=== PATIENT | female | born 1975 | race Caucasian/White ===

== ENCOUNTER → 2023-09-05 | Outpatient (CLI) | payer BC ==
[2023-09-05 14:34] VITALS: BP 144/95; PULSE 65; RESP 16
--- NOTE | 2023-09-05 14:35 | P.PAINPG ---
PQRS Measure Charge Sheet Comment: HISTORY OF PRESENT ILLNESS: A 48 yr old female as a referral from Andrea Cooperpajarred [facility] presents today w severe and chronic LBP secondary to, spondylosis and facet arthropathy without myelopathy for evaluation. Pt states pain level is provoked at 7 /10 in intensity, constant, localized in the lower lumbar spine, predominantly axial, sore in character w occasional shooting pain towards the hips and LEs. Pain is provoked by bending. Pain is alleviated by PT x 6 wks in 2021, massage therapy monthly w last visit in Apr 2023, alternating heat & ice, medications (Ibu), THC Gummies, Lidoderm topical, repositioning and rest. Oswestry axial pain score at 22. PMH: OA PSH: TFESIs L4-5 x2 (2022), L L4-5 Hemilaminectomy, , Tubal Ligation, Hysterectomy, Cholecystectomy, L Bunionectomy SH: No tobacco use, Occasional ETOH use, Cannabis use FH: CAD, CVA All: See list Meds: See list REVIEW OF ORGAN SYSTEMS: CONSTITUTIONAL: No fevers or chills. No recent weight loss. NEUROLOGICAL: + numbness and tingling along the distal extremities. No seizure disorders or headaches. MUSCULOSKELETAL: + pain PSYCHIATRIC: Denies current depression or suicidal thoughts. Physical Examinations : Constitutional : Cooperative , not in acute distress . Neurologic : Cranial nerve II to XII intact. No focal neurological deficits. Psychiatric : alert & oriented x 3. Matching mood & appropriate affect. Judgment & insight intact. Musculoskeletal : Cervical Spine Motor strength in the deltoid and biceps: Normal right side. Normal Left side Motor strength biceps and the wrist extensors: Normal right side . Normal left side Motor strength in the triceps muscle: Normal right side. Normal left side Deep tendon reflexes: Normal at the biceps. Normal at Brachioradialis. Normal at triceps Vertebral body tenderness to deep palpation over Cervical facet loading test: positive bilaterally Spurling test: positive bilaterally Neck distraction test: positive bilaterally Ehsan sign: positive bilaterally Lumbar spine Motor strength lower extremities ,thigh and legs 5/5 Right side , 5/5 Left side Deep tendon reflexes : Normal Knee Jerk. Normal Ankle Jerk Vertebral body tenderness over L2 Givens Test positive BL L2-L3 Lumbar facet Loading Test: positive Right / positive Left Range of motion of the lumbar spine Flexion 30 degrees, extension 10 degrees Straight Leg Raise test: Left/ Right positive at degree Lisa test: positive right / positive left. Severe tenderness over the Sacroiliac joint on the Right / Left sides Gaenslen test: positive bilaterally Seated flexion test: positive bilaterally. Sacral spine : Severe tenderness over the Sacroiliac joint: right side / left side Range of motion: Flexion of the lumbar spine <60 degrees Range of motion: Extension of the lumbar spine <20 degrees Gaenslen's Test positive Lisa test: positive right side / left side Thigh Thrust Test Sacral Thrust Test Imaging: MRI noncontrast of the lumbar spine from 03/09/2022 reviewed Assessment/ Plan : Lumbar post laminectomy syndrome, L2-L3 posterior disc herniation Recommendation of BL TFESI L2-L3 #1. May need a series of injections for optimal pain relief. Risks, benefits of procedure discussed and patient verbalized understanding. Admits to anti- coagulant use or medical history of diabetes. Protocol for discontinuation/ continuation of medications jose luis procedure discussed. All questions answered. I have spent greater than 30 minutes on patient care today. Dr Beckwith was available by phone for the evaluation of this patient. The time was used to review the medical records including relevant urine studies and Prescription history (MAPs), review of the available imaging, evaluation and examination of the patient, coordination of care with the medical staff and if applicable referring physicians, as well as creation of the medical record Controlled Substance Measures - Controlled Substance Measures Is patient prescribed a controlled substance at discharge?: No
== END ==
LOC: PNWHC3 13:41
PROVIDERS: ATTEND Specialist
DX: M96.1 Postlaminectomy syndrome, not elsewhere classified (principal); M51.26 Other intervertebral disc displacement, lumbar region; M54.16 Radiculopathy, lumbar region; M19.90 Unspecified osteoarthritis, unspecified site; F12.90 Cannabis use, unspecified, uncomplicated; Z88.8 Allergy status to other drugs, medicaments and biological substances
CPT/HCPCS: 99202

== ENCOUNTER 2023-09-27 06:06 | Day surgery (SDC) | payer BC ==
[2023-09-26 08:34] VITALS: BMI 36.6
[~2023-09-27 06:06] MED LIST: LACTATED RINGERS 1,000 ML IV SCH
[2023-09-27 06:38] LABS: Glucose,Whole Blood 91 mg/dL (70-110)
[2023-09-27 06:54] VITALS: PULSE 68; RESP 18; TEMP 97.4
[2023-09-27] MEDS ORDERED: IOPAMIDOL M300 15ML VIAL ONE (07:03)
[2023-09-27] MEDS ORDERED: ROPIVACAINE 5MG/ML 20ML VIAL ONE (07:03)
[2023-09-27] MEDS ORDERED: DEXAMETHASONE SOD PHOSPHATE 10 MG/ML 1 ML VIAL ONE (07:03)
--- NOTE | 2023-09-27 07:48 | P.PCN ---
Description of Procedure: PREOPERATIVE DIAGNOSIS: 1-Lumbar radiculopathy . 2-lumbar degenerative disc disease. 3-lumbar spondylosis with lumbar facet arthropathy without myelopathy POSTOPERATIVE DIAGNOSIS: 1-lumbar radiculopathy. 2-lumbar degenerative disc disease. 3-lumbar spondylosis with facet arthropathy without myelopathy PROCEDURE 1. Transforaminal epidural steroid injection under fluoroscopic guidance at BILATERAL L2-3 level. (Fluoroscopy images stored on file in the radiology Department ) 2. Lumbar epidurogram . ANESTHESIA: Local with 1% lidocaine 5 ml. subcutaneously. Continuous pulse ox, EKG, blood pressure and verbal communication was maintained with the patient. EBL: Minimal PROCEDURE INDICATION: The patient with low back pain and radiculopathy symptoms unresponsive to conservative treatment. The patient was seen and identified in the preoperative area. Risks, benefits, complications, and alternatives were discussed with the patient. The patient agreed to proceed with the procedure and signed the consent. IV was started, and vital signs were stable. PROCEDURE DESCRIPTION / TECHNIQUE: After getting consent, patient was taken to the OR and time out was completed. The patient was placed in the prone position on procedure table and a pillow was placed under the abdomen to reduce lumbar lordosis. The lumbosacral area w as prepped and draped in the usual sterile fashion. Critical pause was taken. After injecting 5 mL of plain 1% lidocaine subcutaneously, under oblique view of the fluoroscope, a 22-gauge spinal needle was introduced under the tunnel view of the fluoroscope on the RIGHT side and the needle was advanced so that the tip of the needle was at the posterior inferior quadrant of the intervertebral fora men at the lateral view of the fluoroscope and in the lateral third of the facet column in the AP view of the fluoroscope. Negative CSF, negative blood, negative paresthesia. After needle position confirmation by AP and cross table lateral view, 3 mL of Isovue-M 200 contrast was injected under continuous fluoroscope. No contrast was noted in the intrathecal or intravascular space. The epidurogram was noted. Again after repeated negative aspiration 2.5 mL solution was injected which consists 1.5 mL of normal saline mixed with 1 mL of 15 mg dexamethasone. Needle was removed . Same procedure was repeated at the LEFT side at same level , using contrast under continuous fluoroscopy and using same amount of dexamethasone. At the end of the procedure, skin was cleansed, and bandages were applied. DISPOSITION / PLANS: No complication. The patient tolerated the procedure well. The patient was placed in a supine position and transferred to the recovery area in a stable condition for observation. There was no evidence of lower extremity motor or sensory deficit after the procedure. Patient was discharged from the recovery room after meeting discharge criteria. Home discharge instruc tions were given to the patient by the staff. The patient was reexamined prior to discharge. IF NO IMPROVEMENT WITH THIS PROCEDURE, MAY CONSIDER CAUDAL EPIDURAL FOR NEXT PROCEDURE.
[2023-09-27 08:17] VITALS: BP 145/78
--- NOTE | 2023-09-27 09:05 | FL ---
EXAMINATION TYPE: FL guided pain mgmt statistic Intraoperative/procedural fluoroscopic services were provided. Total fluoroscopy time is 29 seconds with a total of 4 submitted images to PACS. Please see the operative/procedural note for further details. DAP: [id number] mGym2
== END 2023-09-27 08:05 | disposition home or self-care (01) ==
LOC: ORPAIN 06:06
PROVIDERS: ATTEND Pain Medicine Interventional Pain Medicine
DX: M51.16 Intervertebral disc disorders with radiculopathy, lumbar region (principal); M47.26 Other spondylosis with radiculopathy, lumbar region; Z88.9 Allergy status to unspecified drugs, medicaments and biological substances; Z90.710 Acquired absence of both cervix and uterus; Z79.52 Long term (current) use of systemic steroids
CPT/HCPCS: 64483; J1100; Q9967; J2795

== ENCOUNTER → 2023-10-18 | Outpatient (CLI) | payer BC ==
[2023-10-18 14:44] VITALS: BP 154/98; PULSE 65; RESP 16
--- NOTE | 2023-10-18 15:10 | P.PAINPG ---
PQRS Measure Charge Sheet Comment: HISTORY OF PRESENT ILLNESS: A 48 yr old female presents today w severe and chronic LBP secondary to, spondylosis and facet arthropathy without myelopathy for evaluation s/p BL TFESI L2-L3 #1. Pt states she experienced 75% pain relief x 1 wk s/p procedure. Pt states pain level is provoked at 3 /10 in intensity, constant, localized in the lower lumbar spine, predominantly axial, sore in character w occasional shooting pain towards the hips and LEs. Pain is provoked by bending. Pain is alleviated by PT x 6 wks in 2021, massage therapy monthly w last visit in Apr 2023, alternating heat & ice, medications, THC Gummies, Lidoderm topical, repositioning and rest. Oswestry axial pain score at 17. Interventional procedures include BL TFESI L2-L3 x1 Medications include Medrol dose pack, Ibu, Cannabis use REVIEW OF ORGAN SYSTEMS: CONSTITUTIONAL: No fevers or chills. No recent weight loss. NEUROLOGICAL: + numbness and tingling along the distal extremities. No seizure disorders or headaches. MUSCULOSKELETAL: + pain PSYCHIATRIC: Denies current depression or suicidal thoughts. Physical Examinations : Constitutional : Cooperative , not in acute distress . Neurologic : Cranial nerve II to XII intact. No focal neurological deficits. Psychiatric : alert & oriented x 3. Matching mood & appropriate affect. Judgment & insight intact. Musculoskeletal : Cervical Spine Motor strength in the deltoid and biceps: Normal right side. Normal Left side Motor strength biceps and the wrist extensors: Normal right side . Normal left side Motor strength in the triceps muscle: Normal right side. Normal left side Deep tendon reflexes: Normal at the biceps. Normal at Brachioradialis. Normal at triceps Vertebral body tenderness to deep palpation over Cervical facet loading test: positive bilaterally Spurling test: positive bilaterally Neck distraction test: positive bilaterally Ehsan sign: positive bilaterally Lumbar spine Motor strength lower extremities ,thigh and legs 5/5 Right side , 5/5 Left side Deep tendon reflexes : Normal Knee Jerk. Normal Ankle Jerk Vertebral body tenderness over L2 Givens Test positive BL L2-L3 Lumbar facet Loading Test: positive Right / positive Left Range of motion of the lumbar spine Flexion 30 degrees, extension 10 degrees Straight Leg Raise test: Left/ Right positive at degree Lisa test: positive right / positive left. Severe tenderness over the Sacroiliac joint on the Right / Left sides Gaenslen test: positive bilaterally Seated flexion test: positive bilaterally. Sacral spine : Severe tenderness over the Sacroiliac joint: right side / left side Range of motion: Flexion of the lumbar spine <60 degrees Range of motion: Extension of the l umbar spine <20 degrees Gaenslen's Test positive Lisa test: positive right side / left side Thigh Thrust Test Sacral Thrust Test Imaging: MRI noncontrast of the lumbar spine from 03/09/2022 reviewed Assessment/ Plan : Lumbar post laminectomy syndrome, L2-L3 posterior disc herniation Will manage residual pain and may RTC on an as needed basis. All questions answered. I have spent greater than 30 minutes on patient care today. Dr Beckwith was available by phone for the evaluation of this patient. The time was used to review the medical records including relevant urine studies and Prescription history (MAPs), review of the available imaging, evaluation and examination of the patient, coordination of care with the medical staff and if applicable referring physicians, as well as creation of the medical record PQRS Narrative: Hx Alcohol Use (MH) Yes Home Medications: Ambulatory Orders Acetaminophen [Tylenol Extra Strength] 1,000 mg PO Q8HR PRN 09/26/23 Cyclobenzaprine [Flexeril] 5 mg PO HS PRN 09/26/23 Ibuprofen [Motrin Ib] 600 - 800 mg PO Q8H PRN 09/26/23 Controlled Substance Measures - Controlled Substance Measures Is patient prescribed a controlled substance at discharge?: No
== END ==
LOC: PNWHC3 13:51
PROVIDERS: ATTEND Specialist
DX: M96.1 Postlaminectomy syndrome, not elsewhere classified (principal); M51.26 Other intervertebral disc displacement, lumbar region; M47.816 Spondylosis without myelopathy or radiculopathy, lumbar region; G89.29 Other chronic pain; Z88.8 Allergy status to other drugs, medicaments and biological substances
CPT/HCPCS: 99211

== ENCOUNTER 2024-02-10 20:43 | Emergency (ER) | payer BC ==
[2024-02-10] MEDS ORDERED: HYDROmorphone 1 MG/ML 1 ML SYRINGE ONE ×2 (22:10→23:54)
[2024-02-10] MEDS ORDERED: SODIUM CHLORIDE 0.9% 1,000 ML BAG ONE (22:20)
[2024-02-10] MEDS ORDERED: POTASSIUM CHLORIDE ER 20 MEQ TAB.ER PO ONE (23:54)
[2024-02-10] MEDS ORDERED: KETOROLAC 15 MG/ML 1 ML VIAL ONE (23:54)
== END 2024-02-11 01:18 | disposition home or self-care (01) ==
LOC: EC 20:43
DX: M54.50 Low back pain, unspecified
CPT/HCPCS: 74176; 96361; 96374; 96375; 96376; 99284

== ENCOUNTER → 2024-08-22 | Outpatient (CLI) | payer BC ==
--- NOTE | 2024-09-01 10:13 | P.CEMON ---
7 Day Event monitor note: Patient wore an event monitor for 7 days from 08/22/2024 through 08/28/2024. Findings: Patient's baseline heart rate was normal sinus rhythm. There were no signficant atrial fibrillation, atrial flutter, or ventricular tachycardia episodes. There were no significant pauses greater than 2 seconds. There were rare less than 1% PACs and PVCs There were 14 patient activated events of heart racing corresponding with sinus rhythm with heart rates in the 70s and 80s and once sinus tachycardia with heart rate 131 bpm Average heart rate 77 bpm Minimum heart rate 58 bpm Maximum heart rate 131 bpm Conclusions: 7-day event monitor showing normal sinus rhythm. Patient activated events corresponded with normal sinus rhythm.
--- NOTE | 2024-09-02 14:17 | EM ---
7 Day Event monitor note: Patient wore an event monitor for 7 days from 08/22/2024 through 08/28/2024. Findings: Patient's baseline heart rate was normal sinus rhythm. There were no significant atrial fibrillation, atrial flutter, or ventricular tachycardia episodes. There were no significant pauses greater than 2 seconds. There were rare less than 1% PACs and PVCs There were 14 patient activated events of heart racing corresponding with sinus rhythm with heart rates in the 70s and 80s and once sinus tachycardia with heart rate 131 bpm Average heart rate 77 bpm Minimum heart rate 58 bpm Maximum heart rate 131 bpm Conclusions: 7-day event monitor showing normal sinus rhythm. Patient activated events corresponded with normal sinus rhythm. [facility]
== END | disposition home or self-care (01) ==
LOC: RADECHMAIN 07:25
PROVIDERS: ATTEND Family Medicine
DX: I49.9 Cardiac arrhythmia, unspecified (principal); R00.0 Tachycardia, unspecified
CPT/HCPCS: 93270